=== PATIENT | female | born 1970 | race Caucasian/White ===

== ENCOUNTER 2019-03-15 11:07 | Day surgery (SDC) | payer BC ==
--- OUTSIDE RECORDS SUMMARY | 2019-03-15 11:09 | XMS REPORT ---
:1970 [facility] Address [address] [place] [place] [address] Care Team Providers Name Role Phone JAYJAY CRAIG Unavailable Unavailable Problems This patient has no known problems. Allergies, Adverse Reactions, Alerts This patient has no known allergies or adverse reactions. Medications This patient has no known medications. Encounters Start End Encounter Admission Attending Care Care Encounter Date/Time Date/Time Type Type Clinicians Facility Department ID 2019-01-15 2019-01-15 Outpatient E [facility] [id number] 16:32:00 16:32:00 Results Test Description Test Time Test Comments Text Results Atomic Results Result Comments CT, CTA CORONARY, 2019-02-05 14:35:00 Addendum BeginsREPORT STATUS:A PATIENT ID: W/ RICHA YVON [id number] ADDENDUM: Study reviewed by radiology. Agree with the nonvascular findings as described below. Signed: Gab Baird MDReport Verified Date/Time: 02/05/2019 14:35:45 Reading Location: [place] [address] Angio Body Reading RoomAddendum EndsFINAL REPORT CT coronary angiography, 02 Feb 2019 INDICATION: This is a 48 -year old female with diagnosis of R07.9 presents for assessment. This study is performed in an attempt to avoid an invasive procedure. Note, there is a discrepancy of patient's name. On the physician order, it is Ramonita Desai and in the EPIC, the name is Ramonita Sanchez. This has been confirmed with the patient to be the same. According to patient, she developed chest pain in December, after heavy lifting. Patient since that has been asymptomatic. Patient had no history of exertional chest pain. Patient is a nonsmoker. Technique: Spiral acquisition during intravenous contrast administration using a Kulwant multidetector CT scanner.. Multi-planar 3-D volume-rendering reconstruction was performed using an independent workstation interactively by the interpreting physician as well as the 3-D specialist for optimal visualisation of the coronary anatomy. Consecutive thin slices (< 1mm) were obtained. Blood pressure was borderline, and high rate was at least 85 bpm. Due to borderline blood pressure, only small dose of IV metoprolol was given and no nitroglycerin was given. Medication administration: Oral metoprolol 0 mg;IV metoprolol 10 mg;S/L nitroglyercin 0 mg. Please refer to the contrast sheet scanned in the EPIC system for the amount and route of contrast given. Due to increase in heart rate, both systolic and diastolic data set has to be acquired. Fortunately decent quality images were obtained. ed according to our departmental dose-optimisation programme, which includes automated exposure control, adjustment of the mA and/or kV according to patient size and/or use of iterative reconstruction technique. Dose modulation, iterative reconstruction, and/or weight based adjustment of the mA/kV was utilized to reduce the radiation dose to as low as reasonably achievable. FINDINGS: VASCULAR: The thoracic aorta is normal in course, calibre, contour. No ectasia or aneurysmal dilation is seen. No atherosclerosis is identified. There is no acute aortic pathology, specifically, there is no dissection, contained rupture, and intramural hematoma. The arch vessel branching pattern is normal. The central pulmonary artery is normal in calibre. The left ventricle is normal in size. There is normal atrio-ventricular and ventriculo-arterial concordance, and systemic and pulmonary venous return. There is no evidence of pericardial effusion. Calcium score and high-resolution, ECG synchronized computed tomography of the heart with attention to the coronary arteries was performed. Coronary calcification was analyzed using the [employer] system software. These are the results of the calcium score evaluation (sxfsfzmll=144 HU): LM:=0 Volume=0 LAD:=0 Volume=0 LCX:=0 Volume=0 RCA:=0 Volume=0 Agatston:=0 Volume=0 Reference ranges for calcium scores are provided as follows (Jurado Clin Proc 1999; 74: 243-252): 0-10: minimal calcium 11-100: mild calcium 101-400 moderate calcium > 400 significant calcium The coronary arteries have normal origins. The left main coronary artery arises from the left sinus of Valsalva and give rise to the left anterior descending of the left circumflex arteries in the normal fashion. The right coronary artery arises from the right sinus of Valsalva. The left main coronary artery is widely patent. The left anterior descending artery is widely patent and the proximal and mid segment. The distal LAD becomes a small calibre vessel, likely when nitroglycerin was not given. The diagonal arteries are small calibre vessel and is widely patent proximally. The left circumflex artery is also widely patent proximally endostent is a nondominant vessel. The proximal and mid LCx is unremarkable. The OM branch is small in calibre. The right coronary artery is a dominant vessel. It is widely patent throughout its course. Its gives rise to an acute marginal artery. It continues distally as the posterior descending artery as well as the PL branch. The PDA and a PL branch are small in calibre, likely when nitroglycerin was not given. NON-VASCULAR: The visualised thyroid gland is unremarkable. The chest wall and mediastinum appears unremarkable. No adenopathy is identified in the mediastinum. The lung windows, no abnormality is seen. No endobronchial lesion is seen. No pleural effusions identified. No nodule is noted. Minimal atelectatic changes are seen. Limited images of the upper abdomen reveals no gross normality. In the bony windows, no acute bony pathology is seen. CONCLUSIONS: 1. Quantitative coronary artery calcium volume and Agatston score of 0 and 0 , respectively. Increased in imaging noise is noted, however, no obvious sclerotic calcification is seen. 2. Normal coronary artery origins. Major epicardial coronary arteries, including the left main coronary artery, the left anterior descending artery, left circumflex artery, and the right coronary artery are widely patent with no focal stenosis. The arterial contour is smooth, and no obstructive lesion is appreciated. 3. No acute pulmonary pathology. No suspicious pulmonary nodule is noted. 4. Normal thoracic aorta. No ectasia or aneurysmal dilation is identified. 5. Other findings as described above. 6. The non-vascular findings will be reviewed by the Coning Machine Operator Radiologist and addendum will be added as needed. Signed: Riaz Munoz MDReport Verified Date/Time: 02/02/2019 14:33:59 Reading Location: [facility] B1 P047 Cardiology MRI -CREATININE 2019-02-02 14:05:00 Test Item Value Reference Range Comments POC-CREATININE (JERMAINE) (test 0.9 mg/dL 0.6-1.3 TESTED AT [facility] 6720 kfnz=[id number]) [facility] [address] POC-EGFR (JERMAINE) (test wela=1381) 66 mL/min/1.73M2
--- OUTSIDE RECORDS SUMMARY | 2019-03-15 11:09 | XMS REPORT | Clinical Summary ---
:1970 Author Organization [facility] Address [address] [place] [address] Care Team Providers Name Role Phone Tali Gonzalez MD Primary Care Provider Allergies Active Allergy Reactions Severity Noted Date Comments Gabapentin Itching, Rash Low 02/02/2019 Medications Not on file Active Problems Not on file Encounters Date Type Specialty Care Team Description 02/02/2019 Hospital Encounter Radiology Marco A Goodrich Chest painAakash MD unspecified type 01/29/2019 Outside Orders Central Scheduling Marco A Goodrich Chest painAakash MD unspecified type (Primary Dx) after 03/14/2018 Social History Tobacco Use Types Packs/Day Years Used Date Never Assessed Sex Assigned at Date Recorded Not on file Job Start Date Occupation Industry Not on file Not on file Not on file Travel History Travel Start Travel End No recent travel history available. Last Filed Vital Signs Not on file Plan of Treatment Not on file Procedures Procedure Name Priority Date/Time Associated Comments Diagnosis CTA HEART CORONARY Routine 02/02/2019 2:13 PM Results for this WITH CALCIUM CDT procedure are in EVALUATION WITHOUT the results FFR section. POCT-CREATININE Routine 02/02/2019 1:04 PM Results for this CDT procedure are in the results section. after 03/14/2018 Results CTA heart coronary with calcium evaluation without FFR (02/02/2019 2:13 PM CDT) Specimen Narrative Performed At Addendum Begins PhoneFusion REPORT STATUS:A ADDENDUM: Study reviewed by radiology. Agree with the nonvascular findings as described below. Signed: Gab Baird MD Report Verified Date/Time:02/05/2019 14:35:45 Reading Location: [facility] B1 P048 Angio Body Reading Room Addendum Ends FINAL REPORT CT coronary angiography, 02 Feb 2019 INDICATION: This is a 48 -year old female with diagnosis of R07.9 presents for assessment. This study is performed in an attempt to avoid an invasive procedure. Note, there is a discrepancy of patient's name. On the physician order, it is Ramonita Desai and in the EPIC, the name is Ramonita Patricia Andrea. This has been confirmed with the patient to be the same. According to patient, she developed chest pain in December, after heavy lifting. Patient since that has been asymptomatic. Patient had no history of exertional chest pain. Patient is a nonsmoker. Technique: Spiral acquisition duringintravenous contrast administration using a Kulwant multidetector CT scanner.. Multi-planar 3-D volume-rendering reconstruction was performed using an independent workstation interactively by the interpreting physician as well as the 3-D specialist for optimal visualisation of the coronary anatomy.Consecutive thin slices (< 1mm) were obtained. Blood pressure was borderline, and high rate was at least 85 bpm. Due to borderline blood pressure, only small dose of IV metoprolol was given and no nitroglycerin was given. Medication administration: Oral metoprolol 0 mg; IV metoprolol 10 mg; S/L nitroglyercin 0 mg. Please refer to the [...] thoracic aorta is normal in course, calibre, contour.No ectasia or aneurysmal dilation is seen. No atherosclerosis is identified. There is no acute aortic pathology, specifically, there is no dissection, contained rupture, and intramural hematoma.The arch vessel branching pattern is normal. The central pulmonary artery is normal in calibre. The left ventricle is normal in size. There is normal atrio-ventricular and ventriculo-arterialconcordance, and systemic and pulmonary venous return.There is no evidence of pericardial effusion. Calcium score and high-resolution, ECG synchronized computed tomography of the heart with attention to the coronary arteries was performed. Coronary calcification was analyzed using the [employer] system software. These are the results of the calcium score evaluation (mpvykbqtr=002 HU): LM:=0 Volume=0 LAD:=0 Volume=0 LCX:=0Volume=0 RCA:=0 Volume=0 Agatston:=0 Volume=0 Reference ranges for calcium scores are provided as follows (Jurado Clin Proc 1999; 74: 243-252): 0-10: minimal calcium 11-100: mild calcium 101-400 moderate calcium > 400significant calcium The coronary arteries have normal origins.The left main coronary artery arises from the [...] The right coronary artery is a dominant vessel.It is widely patent throughout its course.Its gives rise to an acute marginal artery. [...] non-vascular findings will be reviewed by the Clinical Education Manager Radiologist and addendum will be added as needed. Signed: Riaz Munoz MD Report Verified Date/Time:02/02/2019 14:33:59 Reading Location: [place] [address] Cardiology MRI Procedure Note Interface, External Ris In - 02/05/2019 2:37 PM CDT Addendum Begins REPORT STATUS:A ADDENDUM: Study reviewed by radiology. Agree with the nonvascular findings as described below. Signed: Gab Baird MD Report Verified Date/Time: 02/05/2019 14:35:45 Reading Location: [place] [address] Angio Body Reading Room Addendum Ends FINAL REPORT CT coronary angiography, 02 Feb 2019 INDICATION: This is a 48 -year old female with diagnosis of R07.9 presents for assessment. This study is performed in an attempt to avoid an invasive procedure. Note, there is a discrepancy of patient's name. On the physician order, it is Ramonita Desai and in the EPIC, the name is Ramonita Andrea. This has been confirmed with the patient [...] was given. Medication administration: Oral metoprolol 0 mg; IV metoprolol 10 mg; S/L nitroglyercin 0 mg. Please refer to the [...] performed. Coronary calcification was analyzed using the [employer] system software. These are the results of the calcium score evaluation (peifstwfi=290 HU): LM:=0 Volume=0 LAD:=0 Volume=0 LCX:=0 Volume=0 [...] non-vascular findings will be reviewed by the Clinical Education Manager Radiologist and addendum will be added as needed. Signed: Riaz Munoz MD Report Verified Date/Time: 02/02/2019 14:33:59 Reading Location: [place] [address] Cardiology MRI Performing Organization Address City/State/Zipcode Phone Number [facility] POC-Creatinine (02/02/2019 1:04 PM CDT) POC-Creatinine 0.9Comment: TESTED AT 0.6 - 1.3 mg/dL [facility] [address] [place] [address] POC-EGFR 66 mL/min/1.73M2 [facility] Specimen Blood Performing Organization Address City/State/Zipcode Phone Number [facility] [address] [place] [address] CENTER after 03/14/2018 Insurance Payer Benefit Plan / Subscriber ID Type Phone Address Group [employer]UE [employer]OSS/BLUE [employer]BS PPO POS EPO xxxxxxxxxxxx PPO [phone] [address] [place] [address] [employer]UE [employer]OSS/BLUE [employer] OS xxxxxxxxxxxx PPO [phone] [address] SHIELD POS/PPO/[place] [address]
--- OUTSIDE RECORDS SUMMARY | 2019-03-15 11:09 | XMS REPORT | Clinical Summary ---
:1970 Author Organization [facility] Address [address] [place] [address] Care Team Providers Name Role Phone Diana Draper MD Primary Care Provider Allergies Active Allergy Reactions Severity Noted Date Comments Codeine Itching Medium 12/11/2015 Medications Medication Sig Dispensed Refills Start Date End Date Status citalopram (CeleXA) Take 1 tablet (40 30 tablet 0 03/10/2016 Active 40 MG tablet mg total) by mouth once daily. lisinopril-hydrochlor TAKE 1 TABLET BY 90 tablet 3 06/19/2016 Active othiazide MOUTH EVERY DAY (PRINZIDE,ZESTORETIC) DIRECTED 10-12.5 mg per tablet Active Problems Problem Noted Date Anxiety 12/11/2015 Cough 12/11/2015 Essential hypertension 12/11/2015 Fatigue 12/11/2015 Gout 12/11/2015 Hand joint pain 12/11/2015 Multiple-type hyperlipidemia 12/11/2015 Vitamin D deficiency 12/11/2015 Avitaminosis 12/11/2015 Wheezing 12/11/2015 IFG (impaired fasting glucose) Overview: 07/29/15- a1c 5.8 GERD (gastroesophageal reflux disease) Asthma Bilateral dry eyes Hypertension Immunizations Name Dates Previously Given Next Due Hepatitis A 12/24/2014 Hepatitis B 12/24/2014 TD Preservative Free 12/24/2014 Family History Medical History Relation Name Comments Alcohol abuse Father Steve Heart disease Father Steve 3 v CABG Cancer Mother Leticia De La Rosa Diabetes Mother Leticia De La Rosa Hearing loss Mother Leticia De La Rosa Hypertension Mother Leticia De La Rosa Hypertension Sister Relation Name Status Comments Father Steve Mother Leticia De La Rosa Sister Social History Tobacco Use Types Packs/Day Years Used Date Former Smoker Cigarettes 1 10/27/1999 - 10/27/2001 Alcohol Use Drinks/Week oz/Week Comments Yes 1 Glasses of wine MAYBE once every few months 1 Cans of beer 1 Standard drinks or equivalent Sex Assigned at Date Recorded Not on file Job Start Date Occupation Industry Not on file Not on file Not on file Travel History Travel Start Travel End No recent travel history available. Last Filed Vital Signs Not on file Plan of Treatment Health Maintenance Due Date Last Done Comments BREAST CANCER SCREENING 2018 09/26/2012 COLONOSCOPY SCREENING 2018 SHINGLES VACCINES (#1) 2018 INFLUENZA VACCINE 04/26/2019 Results Not on fileafter 03/14/2018 Advance Directives Patient has advance care planning documents on file. For more information, please contact:[place] [address]
[2019-03-15] MEDS ORDERED: Ringers Lactate 1,000 ML IV ONE (12:13)
[2019-03-15] MEDS ORDERED: CEFAZOLIN/SWI 1gm 1 GM/10 ML SYR ONE (12:14)
[2019-03-15] MEDS ORDERED: PROPOFOL 200 MG/20 ML VIAL IV ONE ×2 (13:39→15:31)
[2019-03-15] MEDS ORDERED: LIDOCAINE 2% MPF 5 ML VIAL ONE (13:40)
[2019-03-15] MEDS ORDERED: MIDAZOLAM HCL 2 MG/2 ML INJ ONE (13:40)
[2019-03-15] MEDS ORDERED: FENTANYL CITR 250 MCG/5 ML ONE (13:41)
[2019-03-15] MEDS ORDERED: ONDANSETRON 4 MG/2 ML VIAL ONE (13:42)
[2019-03-15] MEDS ORDERED: ROCURONIUM 50 MG/5 ML VIAL IV ONE (14:15)
[2019-03-15] MEDS ORDERED: NEOSTIGMINE 1 MG/ML -10 ML VIAL ONE (14:15)
[2019-03-15] MEDS ORDERED: GLYCOPYRROLATE 0.2 MG/ML SYR ONE (14:15)
[2019-03-15] MEDS ORDERED: EPHEDRINE SULF 50 MG/ML VIAL ONE (14:19)
[2019-03-15] MEDS ORDERED: LIDOCAINE 1% W/EPI 1:100,000 MDV 50 ML VIAL ONE (14:39)
[2019-03-15] MEDS ORDERED: Mastisol Adhesive Liq ONE (14:42)
[2019-03-15] MEDS: HYDROMORPHONE HCL 1 MG/ML INJ ONE ×7 (15:45→16:22)
[2019-03-15] MEDS ORDERED: FENTANYL CITR 100 MCG/2 ML ONE (16:28)
[2019-03-15 17:24] VITALS: BP 120/66; TEMP 98.2; O2SAT 95
--- NOTE | 2019-03-16 07:57 | OP ---
Surgeon: Hay Loredo MD Supervisor Reclamation: Italo. 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 Anesthesia: General. Description Of Procedure: After satisfactory induction of general anesthesia, the arm was prepped circumferentially with Betadine scrub and Betadine paint. Dry sterile drapes applied in the usual manner. A sterile tourniquet was applied, and the arm was elevated and exsanguinated with an Esmarch. Tourniquet inflated to 250 mmHg. The elbow was placed on Rotalok table. A curvilinear incision was made over the space in the medial epicondyle . A scalpel was used at the skin, dissected down with tenotomy scissors. The ulnar nerve was identified and the cubital tunnel opened with tenotomy scissors, extended proximally and distally. The vessel loops were placed around the nerve. The branches of nerve were left intact. With the nerve in traction, the periosteum was removed from the medial epicondyle with electrocautery and then a saw was used to remove the medial epicondyle, and then filed with a file. then the tourniquet was released. Electrocautery was used for hemostasis. 4-0 Vicryl was used to sew the periosteum, closing over the raw epicondyle, and 3-0 Vicryl subcu. Then, 4-0 PDS running subcuticular was placed followed by tincture of benzoin and Steri-Strips. Later dressing consisted of Kerlix and splint. the ears were injected with xylocaine with epinephrine, and the scar was excised. the skin was then pulled on itself and created new earlobe . This was sewn to itself with 6-0 Prolene and then the wound was closed with 3-0 Vicryl deep dermis and 4-0 PD running subcuticular. Both sides had a dressing applied. The patient tolerated the procedure well and returned to recovery. ZAFAR/ALVARADO Voice ID: [id number] Report ID: [id number] RUBIN
== END 2019-03-15 17:12 | disposition home or self-care (01) ==
LOC: OR 11:07
PROVIDERS: ATTEND Specialist
PROC: 0HX3XZZ Transfer Left Ear Skin, External Approach (ICD-10-PCS; 2019-03-15)
PROC: 0HX2XZZ Transfer Right Ear Skin, External Approach (ICD-10-PCS; 2019-03-15)
PROC: 01N40ZZ Release Ulnar Nerve, Open Approach (ICD-10-PCS; principal; 2019-03-15 13:00)
PROC: 0PBK0ZZ Excision of Right Ulna, Open Approach (ICD-10-PCS; 2019-03-15 13:00)
DX: G56.21 Lesion of ulnar nerve, right upper limb (principal); M25.521 Pain in right elbow; H61.113 Acquired deformity of pinna, bilateral
CPT/HCPCS: 88304; 88311; J0690; J1170; J2250; J2405; J2704; J2710; J3010